=== PATIENT | male | born 1930 | race Caucasian/White ===

== ENCOUNTER → 2017-01-24 | Outpatient (CLI) | payer MEDICARE, OTHER ==
[~2017-01-24] MED LIST: AMLO5TAB4 PO; ASPI-658 PO; HYDR1POW19 PO; ISOS30TA PO; LISI1POW PO; METF100P3 PO; METO5AMP PO; POTA25PA PO; SIMV10TA PO
[2017-01-24 18:18] LABS: ASPARTATE AMINO TRANSFERASE 15 U/L (15-37); BLOOD UREA NITROGEN 21 mg/dL (7-18)
== END | disposition home or self-care (01) ==
LOC: RAD 17:23
PROVIDERS: ATTEND Physician Assistant
DX: G62.9 Polyneuropathy, unspecified (principal); M79.662 Pain in left lower leg
CPT/HCPCS: 36415; 80053; 84439; 84443; 85025; 85651

== ENCOUNTER 2017-01-28 09:57 | Emergency (ER) | payer MEDICARE, OTHER ==
[~2017-01-28] VITALS: Ht 170.2 cm; Wt 82.3 kg
[2017-01-28] MEDS ORDERED: KETOROLAC 30 MG/1 ML ONE (11:19)
[2017-01-28] MEDS ORDERED: HYDROmorphone 1 MG/ML, 1ML ONE (11:19)
[2017-01-28] MEDS ORDERED: methylPREDNISolone SOD SUCC 125 MG/2 ML ONE (11:19)
[2017-01-28] MEDS ORDERED: ONDANSETRON 2MG/ML, 2ML ONE (11:19)
[2017-01-28] MEDS ORDERED: CARISOPRODOL 350 MG TABLET PO ONE (11:30)
[2017-01-28] MEDS ORDERED: ONDANSETRON 2MG/ML, 2ML IVPush ONE (11:30)
[2017-01-28] MEDS ORDERED: KETOROLAC 30 MG/1 ML IVPush ONE ×2 (11:30)
[2017-01-28] MEDS ORDERED: HYDROmorphone 1 MG/ML, 1ML IVPush PRN (11:30)
[2017-01-28] MEDS ORDERED: methylPREDNISolone SOD SUCC 125 MG/2 ML IVPush SCH (11:30)
[2017-01-28] MEDS ORDERED: POTASSIUM CHLORIDE 20 MEQ TAB.ER.PRT PO ONE (13:00)
[2017-01-28 13:12] VITALS: BP 132/78
== END 2017-01-28 13:14 | disposition home or self-care (01) ==
LOC: ED 10:48
DX: M54.5 Low back pain (principal); E11.9 Type 2 diabetes mellitus without complications; I10 Essential (primary) hypertension; E78.5 Hyperlipidemia, unspecified; Z91.041 Radiographic dye allergy status
CPT/HCPCS: 96374; 96375; 99284; J1170; J1885; J2405; J2930

== ENCOUNTER 2017-01-30 09:29 | Emergency (ER) | payer MEDICARE, OTHER ==
[~2017-01-30] VITALS: Ht 170.2 cm; Wt 78.0 kg
[2017-01-30] MEDS ORDERED: HYDROmorphone 2 MG/ML, 1ML IVPush PRN (10:30)
[2017-01-30] MEDS ORDERED: KETOROLAC 30 MG/1 ML IVPush ONE (10:30)
[2017-01-30] MEDS ORDERED: KETOROLAC 30 MG/1 ML ONE (10:35)
[2017-01-30] MEDS ORDERED: HYDROmorphone 1 MG/ML, 1ML ONE (10:35)
[2017-01-30] MEDS ORDERED: HYDROmorphone 1 MG/ML, 1ML IM ONE (11:00)
[2017-01-30] MEDS ORDERED: KETOROLAC 30 MG/1 ML IM ONE (11:00)
[2017-01-30 12:54] VITALS: BP 113/66
== END 2017-01-30 13:02 | disposition home or self-care (01) ==
LOC: ED 12:56
DX: M25.552 Pain in left hip (principal); M79.652 Pain in left thigh; M54.16 Radiculopathy, lumbar region; I10 Essential (primary) hypertension; E11.9 Type 2 diabetes mellitus without complications; E78.5 Hyperlipidemia, unspecified; Z87.891 Personal history of nicotine dependence
CPT/HCPCS: 74000; 96372; 99284; J1170; J1885

== ENCOUNTER 2018-08-08 10:25 | Day surgery (SDC) | payer MEDICARE, OTHER ==
[~2018-08-08] VITALS: Ht 170.2 cm; Wt 78.0 kg
== END 2018-08-08 12:44 | disposition home or self-care (01) ==
LOC: CACL 10:25
PROVIDERS: ATTEND Internal Medicine Cardiovascular Disease
DX: I48.92 Unspecified atrial flutter (principal); I10 Essential (primary) hypertension; E11.9 Type 2 diabetes mellitus without complications; E78.00 Pure hypercholesterolemia, unspecified; I25.810 Atherosclerosis of coronary artery bypass graft(s) without angina pectoris; Z79.01 Long term (current) use of anticoagulants; Z88.8 Allergy status to other drugs, medicaments and biological substances; Z79.4 Long term (current) use of insulin; Z87.891 Personal history of nicotine dependence; Z79.899 Other long term (current) drug therapy; Z79.84 Long term (current) use of oral hypoglycemic drugs
CPT/HCPCS: 33282; C1764